=== PATIENT | female | born 1945 | race Caucasian/White ===

== ENCOUNTER 2017-03-03 08:17 | Emergency (ER) | payer MEDICARE, OTHER ==
[~2017-03-03] VITALS: Ht 175.3 cm; Wt 54.4 kg
[2017-03-03] MEDS ORDERED: LORAZEPAM 1 MG TABLET ONE (10:31)
--- NOTE | 2017-03-03 11:23 | NUR ---
medication given to patient while meditech down, ativan 2 mg po
[2017-03-03 11:24] VITALS: BP 140/81
== END 2017-03-03 11:28 | disposition home or self-care (01) ==
LOC: ER 08:19
DX: F41.9 Anxiety disorder, unspecified (principal)
CPT/HCPCS: 99284; A4606 ×2; Z7610

== ENCOUNTER 2017-03-28 06:43 | Emergency (ER) | payer MEDICARE, OTHER ==
[~2017-03-28] VITALS: Ht 172.7 cm; Wt 50.3 kg
--- NOTE | 2017-03-28 06:45 | NUR ---
PT BIB [facility] WITH A C/O ANXIETY, NOT ABLE TO CARE FOR HERSELF, NEEDS [employer] FOREPERSON. PT APPEARS EXTREMELY ANXIOUS AND IS STATING: "I ADMIT IT, I'M NOT ABLE TO TAKE CARE OF MYSELF. I'M A SENIOR, I ADMIT IT." PT IS APPEARS SLIGHTLY CONFUSED. PT WAS TAKEN TO ROOM #15 AND TRIAGED. WILL CONTINUE TO MONITOR THE PT.
--- NOTE | 2017-03-28 07:06 | NUR ---
REPORT GIVEN TO XU BARRETT FOR MINDI.
--- NOTE | 2017-03-28 07:10 | NUR ---
RECEIVED REPORT FOR MINDI. NEW IV STARTED ON LAC, 18 G. BLOOD DRAWN AND SENT TO LAB.
[2017-03-28 07:34] LABS: BASOPHILS % (AUTO) 0.4 % (0.0-2.0); EOSINOPHILS % (AUTO) 0.5 % (0.0-6.0); HEMATOCRIT 44 % (33-45); HEMOGLOBIN 14.9 g/dL (11.5-14.8); LYMPHOCYTES # (AUTO) 1.2 /CMM (0.8-4.8); LYMPHOCYTES % (AUTO) 11.6 % (20.0-44.0); MEAN CORPUSCULAR HEMOGLOBIN 31 PG (26.0-33.0); MEAN CORPUSCULAR HGB CONC 34 g/dl (31.0-36.0); MEAN CORPUSCULAR VOLUME 92 fL (82-100); MONOCYTES # (AUTO) 0.7 /CMM (0.1-1.30); MONOCYTES % (AUTO) 6.4 % (2.0-12.0); NEUTROPHILS # (AUTO) 8.2 /CMM (1.8-8.9); NEUTROPHILS % (AUTO) 81.1 % (43.0-81.0); PLATELET COUNT (AUTO) 282 /CMM (150-450); RDW COEFFICIENT OF VARIATION 12.9 (11.5-15.0); RED BLOOD CELL COUNT(AUTO) 4.77 MIL/uL (4.0-5.2); WHITE BLOOD COUNT (AUTO) 10.2 K/uL (4.3-11.0)
[2017-03-28 07:52] LABS: ACETAMINOPHEN 0 ug/ml (10-30); ALANINE AMINOTRANSFERASE 53 U/L (12-78); ALBUMIN 3.7 g/dL (3.4-5.0); ALCOHOL, BLOOD < 3 mg/dL (0-0); ALKALINE PHOSPHATASE 69 U/L (46-116); ASPARTATE AMINOTRANSFERASE 38 U/L (15-37); BILIRUBIN,DIRECT 0.2 mg/dL (0.0-0.2); CALCIUM, SERUM 8.9 mg/dL (8.5-10.1); CARBON DIOXIDE 35 mmol/L (21-32); CHLORIDE 94 mmol/L (98-107); CREATININE 0.7 mg/dL (0.6-1.3); GLUCOSE 141 mg/dL (74-106); SODIUM SERUM 135 mmol/L (136-145); TOTAL PROTEIN, SERUM 7.1 g/dL (6.4-8.2); UREA NITROGEN, BLOOD 17 mg/dL (7-18)
[2017-03-28 07:54] LABS: POTASSIUM 2.6 mmol/L (3.5-5.1)
[2017-03-28] MEDS ORDERED: LORAZEPAM 1 MG TABLET ONE (07:59)
[2017-03-28] MEDS ORDERED: POTASSIUM CHLORIDE 20 MEQ TAB.PRT.SR PO ONE ×2 (07:59→08:00)
[2017-03-28] MEDS ORDERED: LORAZEPAM 0.5 MG TABLET PO ONE (08:00)
[2017-03-28] MEDS ORDERED: IV NS 0.9% 1,000 ML BAG IV ONE (08:30)
--- NOTE | 2017-03-28 08:35 | NUR ---
PATIENT UNABLE TO URINATE FOR URINE SAMPLE. DR. RIDER MADE AWARE AND HAS ORDERED STRAIGHT CATH FOR URINE SAMPLE. STRAIGHT CATH PERFORMED, 640ML URINE OUTPUT INITIALLY. MADE AWARE, NO ORDERS AT THIS TIME.
[2017-03-28] MEDS ORDERED: POTASSIUM CL. PREMIX PERIPHER. 50 ML ONE (08:37)
[2017-03-28] MEDS: POTASSIUM CL. PREMIX PERIPHER. 50 ML IV SCH ×4 (08:51→11:50)
[2017-03-28 09:21] LABS: APPEARANCE,URINE Clear (CLEAR); BILIRUBIN,URINE Negative (NEGATIVE); BLOOD, URINE Large Ery/uL (NEGATIVE); COLOR,URINE Yellow (YELLOW); KETONES,URINE Trace (NEGATIVE); LEUKOCYTE ESTERASE ,URINE Negative (NEGATIVE); NITRITE, URINE Negative (NEGATIVE); PROTEIN,URINE 30 mg/dl (NEGATIVE); UGLUCOSE Negative (NEGATIVE); UROBILINOGEN,URINE 0.2 EU/dL (0.2)
[2017-03-28] MEDS ORDERED: POTASSIUM CL. PREMIX PERIPHER. 150 ML ONE (09:26)
--- NOTE | 2017-03-28 10:07 | NUR ---
REPORT GIVEN TO RNDELISA. PATIENT TO BE ADMITTED TO [facility].
--- NOTE | 2017-03-28 10:25 | NUR ---
BELLE TRUJILLO ON THE PHONE WITH DR RIDER
[2017-03-28 10:47] LABS: WBC,URINE 0-2 /HPF (0-3)
[2017-03-28 10:48] LABS: BACTERIA,URINE Moderate /HPF (None Seen); SQUAMOUS EPITHELIAL CELL,UR Rare /HPF (None Seen)
--- NOTE | 2017-03-28 11:35 | NUR ---
PER DR RIDER PT IS BEING ACCEPTED BY [facility] [place]. ACCEPTING MD IS DR CAST
--- NOTE | 2017-03-28 12:32 | NUR ---
[id number]*[facility] AUTHORIZATION FOR AMBULANCE
--- NOTE | 2017-03-28 12:46 | NUR ---
TRANSPORT TAKEN OFF WILL CALL, ETA 1 HOUR
--- NOTE | 2017-03-28 12:50 | NUR ---
FOLLOWED UP WITH HUMBERTO WITH INTAKE. STILL WAITING FOR A DESTINATION ROOM #
--- NOTE | 2017-03-28 13:17 | NUR ---
CALLED [facility] AGAIN. PER RAJESH WILL CONFIRM ROOM # IN 10 MINUTES
--- NOTE | 2017-03-28 13:43 | NUR ---
PT GOING TO 314-1 NUMBER FOR REPORT [phone] [phone] SPEAK TO [employer]. WILL FAX FACE SHEET TO [phone].
--- NOTE | 2017-03-28 14:01 | NUR ---
CALLED FOR REPORT. PER TAVO CAIN NOT AVAILABLE AT THIS TIME. NAME AND NUMBER LEFT WITH TAVO CAIN TO CALL BACK FOR REPORT ON TRANSFER.
[2017-03-28 14:15] VITALS: BP 123/76
--- NOTE | 2017-03-28 14:15 | NUR ---
REPORT GIVEN TO EMT AT BEDSIDE. PATIENT TO BE TRANSFERRED TO [facility].
== END 2017-03-28 14:15 | disposition short-term general hospital (02) ==
LOC: ER 06:46
DX: E87.6 Hypokalemia (principal); F32.9 Major depressive disorder, single episode, unspecified; F41.9 Anxiety disorder, unspecified
CPT/HCPCS: 36415; 51701; 71010; 80048; 80076; 80305; 81001; 85025; 87086; 93005; 96365; 96366; 99285; A4606; G0480 ×2; J3480 ×2; J7030 ×3; 81000-TC; Z7610